=== PATIENT | female | born 1930 | race Caucasian/White ===

== ENCOUNTER 2018-01-04 01:20 | Emergency (ER) | payer OTHER, MEDICARE ==
[2018-01-04] MEDS: ONDANSETRON (ODT) 4 MG TAB ODT (01:51)
[2018-01-04] MEDS: HYDROCODONE/APAP (10/325) TAB PO (01:51)
[2018-01-04] MEDS: KETOROLAC 30 MG INJ IM (02:11)
== END 2018-01-04 02:19 | disposition home or self-care (01) ==
LOC: E/R 01:20
DX: G50.0 Trigeminal neuralgia (principal); E11.9 Type 2 diabetes mellitus without complications; I10 Essential (primary) hypertension
CPT/HCPCS: 96372; 99284-25

== ENCOUNTER 2018-01-05 03:00 | Emergency (ER) | payer OTHER | END 2018-01-05 03:26 | disposition home or self-care (01) | LOC: FTE 03:26 | DX: G50.0 Trigeminal neuralgia (principal); I10 Essential (primary) hypertension; E11.9 Type 2 diabetes mellitus without complications | CPT/HCPCS: 99281 ==

== ENCOUNTER 2018-06-28 03:19 | Emergency (ER) | payer OTHER, MEDICAID ==
[2018-06-28] MEDS: KETOROLAC 15 MG INJ IV (06:55)
[2018-06-28] MEDS: HYDROCODONE/APAP (5/325) TAB PO (06:55)
== END 2018-06-28 08:10 | disposition home or self-care (01) ==
LOC: E/R 03:19
DX: G50.0 Trigeminal neuralgia (principal); E11.9 Type 2 diabetes mellitus without complications; I10 Essential (primary) hypertension
CPT/HCPCS: 82962; 96374; 99284-25